=== PATIENT | female | born 1950 | race Caucasian/White ===

== ENCOUNTER → 2016-09-09 | Outpatient (CLI) | payer MEDICARE, MEDICAID | END | disposition home or self-care (01) | LOC: GMAB 15:32 | PROVIDERS: ATTEND Family Medicine | DX: I10 Essential (primary) hypertension (principal); F31.9 Bipolar disorder, unspecified ==

== ENCOUNTER 2016-10-07 19:02 | Emergency (ER) | payer MEDICARE, MEDICAID ==
--- NOTE | 2016-10-07 19:50 | CT ---
PROCEDURE: Head HISTORY: ankle turned, fell to right side, rt temporal zackery Indication: Same as above Comparison: 11/09/2015 Technique: CT of the head was done without intravenous contrast was done in the axial plane only FINDINGS: There is no intracranial hemorrhage, midline shift mass effect or acute focal infarct. There is a right frontal scalp swelling and hematoma measuring 5.8 x 2.0 cm If clinical concern exists regarding an acute ischemic/vascular pathology being responsible for patient's symptomatology, an MRI of the brain is more sensitive than the current study, in ruling out such a possibility. There is good scherer/white matter differentiation. The ventricular system is normal. The mastoid air cells are unremarkable . The paranasal sinuses show changes of minimal right maxillary sinusitis . There is no visualization of acute fractures involving the calvarium or the skull base. IMPRESSION: There is no acute intracranial abnormality. There is a right frontal scalp swelling and hematoma measuring 5.8 x 2.0 cm Electronically signed by: Minh Prieto MD 10/07/2016 7:50 PM BUTTERMAKER
--- NOTE | 2016-10-07 19:59 | RAD ---
Right ankle three views INDICATION: Twisted while walking status post fall IMPRESSION: There are dorsal osteophytes in the mid foot. There is a lucency at the base of the fifth metatarsal partially visualized correlate for tenderness in this area and consider foot films if needed to exclude hairline fracture. Mild osteoarthrosis of the ankle. Diffuse soft tissue swelling primarily lateral. Small linear ossification is noted along the lateral hindfoot on the AP film probably small avulsion age-indeterminate. Mortise and syndesmosis are congruent. Electronically signed by: Venkatesh Lassiter MD 10/07/2016 7:58 PM HAZMAT CDL DRIVER
[2016-10-07] MEDS ORDERED: MORPHINE SULFATE INJ 10 MG/ML VIAL IV ONE ×2 (20:42→22:02)
[2016-10-07] MEDS ORDERED: PROMETHAZINE HCL INJ 12.5 MG in SODIUM CHLORIDE 0.9% 50ML 50 ML IVPB ONE (20:42)
[2016-10-07] MEDS ORDERED: PROMETHAZINE HCL INJ 25 MG/ML VIAL ONE (20:48)
[2016-10-07] MEDS ORDERED: SODIUM CHLORIDE 0.9% 50ML 50 ML ONE (20:48)
--- NOTE | 2016-10-07 21:14 | RAD ---
EXAM DESCRIPTION: Foot, right 2 Views CLINICAL HISTORY: 66 years Female R foot/ankle pain s/p fall COMPARISON: None. TECHNIQUE: Two views of the right foot. FINDINGS: The bones are osteopenic. There is a lucency at the base of the fifth metatarsal bone consistent with acute fracture. There are degenerative changes in the foot which are most pronounced at the first tarsometatarsal. There are osteophytes projecting from the dorsal mid foot. IMPRESSION: [Fracture of the base of the fifth metatarsal bone. Electronically signed by: Ismael Velez MD 10/07/2016 9:14 PM ASSISTANT PROFESSOR OF MARINE BIOLOGY
--- NOTE | 2016-10-07 21:39 | ED.PDOC ---
History of Present Illness - General Chief Complaint: Trauma Stated Complaint: post fall, right head pain, right ankle pain Time Seen by Provider: 10/07/16 20:03 Source: patient, RN notes reviewed, Vital Signs reviewed, EMS Exam Limitations: no limitations - History of Present Illness Initial Comments: Patient is a 66 y/o female who is a resident of [facility]. Just prior to arrival, she was walking around when her right foot twisted and she fell and hit her head on the concrete floor. She did not pass out, however she did feel "out of it" until EMS arrived. No loss of urine or bowel. She has a significant hematoma on the right side of her forehead. She is on Xarelto and she is concerned about a bleed. She has a headache--severe, and severe right ankle pain. Nothing makes the head better. Immobilization makes the foot better. Movement makes both worse. Timing/Duration: 1 hour Severity: severe Improving Factors: immobilization Worsening Factors: movement Associated Symptoms: headaches, nausea/vomiting, weakness Allergies/Adverse Reactions: Allergies NO KNOWN ALLERGY Allergy (Verified 06/03/15 12:37) Home Medications: Ambulatory Orders Furosemide [Lasix] 40 mg PO DAILY 07/20/14 Potassium Chloride [Klor-Con] 20 meq PO DAILY 07/20/14 Rivaroxaban [Xarelto] 20 mg PO QPM 07/20/14 Tramadol HCl [Ultram] 50 ea PO Q4H PRN 07/20/14 Divalproex Sodium [Depakote Tab] 500 mg PO BID 11/09/15 Promethazine Tab [Phenergan Tablet] 25 mg PO PRN PRN 11/09/15 Acetaminophen W/ Codeine [Tylenol W/ CODEINE #3] 1 ea PO Q4H PRN #10 10/07/16 Acetaminophen [Tylenol] 500 mg PO PRN 10/07/16 Alum & Mag Hydrox-Simethicone [Mylanta] 30 ml PO PRN 10/07/16 Bisacodyl 10 mg FL PRN 10/07/16 Cetirizine HCl [Zyrtec] 10 mg PO DAILY 10/07/16 Fluticasone Prop 0.05% Nasal [Flonase Nasal Haskins] 1 - 2 spray DAILY 10/07/16 Hydrochlorothiazide 12.5 mg PO DAILY 10/07/16 LORazepam [Ativan] 0.5 mg PO PRN 10/07/16 LORazepam [Ativan] 0.5 mg TID 10/07/16 Lisinopril 20 mg PO DAILY 10/07/16 Loperamide HCl 2 mg PO PRN 10/07/16 Magnesium Hydroxide [Milk Of Magnesia] 30 ml PO PRN 10/07/16 Melatonin 3 mg BEDTIME 10/07/16 Metoprolol Tartrate 50 mg PO TID 10/07/16 Mirtazapine [Remeron] 15 mg PO BEDTIME 10/07/16 Olopatadine HCl [Pazeo] 0.7 % OP PRN 10/07/16 Polyethylene Glycol 3350 [Miralax] 17 gm PO PRN 10/07/16 Sennosides [Senna] 8.6 mg PRN 10/07/16 Spironolactone 25 mg PO DAILY 10/07/16 Trazodone HCl 50 mg PO BEDTIME 10/07/16 Review of Systems - Review of Systems Constitutional: States: weakness EENTM: States: no symptoms reported Respiratory: States: no symptoms reported Cardiology: States: no symptoms reported Gastrointestinal/Abdominal: States: nausea Genitourinary: States: no symptoms reported Musculoskeletal: States: joint pain, muscle pain Skin: States: other - bruising Neurological: States: headache Endocrine: States: no symptoms reported Hematologic/Lymphatic: States: easy bleeding All other Systems: Reviewed and Negative Past Medical History (General) - Patient Medical History Hx Seizures: Yes Hx Stroke: No Hx Dementia: No Hx Asthma: No Hx of COPD: No Hx Cardiac Disorders: No Hx Congestive Heart Failure: No Hx Pacemaker: Yes Hx Hypertension: Yes Hx Thyroid Disease: No Hx Diabetes: No Hx Gastroesophageal Reflux: No Hx Renal Disease: No Hx Cancer: No Hx of HIV: No Hx Hepatitis C: No Hx MRSA: Yes MRSA Source:: Blood Surgical History: noncontributory - Vaccination History Hx Influenza Vaccination: Yes Hx Pneumococcal Vaccination: Yes Immunizations Up to Date: Yes - Social History Hx Tobacco Use: No Hx Chewing Tobacco Use: No Hx Alcohol Use: No Hx Substance Use: No Hx Substance Use Treatment: No Hx Depression: No Hx Physical Abuse: No Hx Emotional Abuse: No Hx Suspected Abuse: No - Activities of Daily Living Custodial/Assisted Living (if applicable):: [place] - Female History Patient : No Family Medical History - Family History Mother Family History: No Known Living Status: Hx Family Asthma: No Hx Family Congestive Heart Failure: No Hx Family Hypertension: Yes Hx Family Stroke: Yes Hx Cardiac Disease: Yes Hx Family Diabetes: No Hx Family Cancer: No Physical Exam - Physical Exam General Appearance: Alert, Anxious, Obvious distress - Mild Eye Exam: bilateral normal Ears, Nose, Throat: hearing grossly normal, normal ENT inspection Neck: non-tender, full range of motion, supple, normal inspection Respiratory: lungs clear, normal breath sounds, no respiratory distress, no accessory muscle use Cardiovascular/Chest: regular rate, rhythm, no edema, no gallop, no murmur Gastrointestinal/Abdominal: normal bowel sounds, non tender, soft, no organomegaly Back Exam: normal inspection, no vertebral tenderness Extremity: no pedal edema, no calf tenderness, normal capillary refill, other - tender right foot--ventral and lateral Neurologic: validation specialist II-XII nml as tested, alert, normal mood/affect, oriented x 3 Skin Exam: rash - Large hematoma to right upper forehead Progress - Results/Orders Results/Orders: 10/07/16 19:14 Temperature 98.5 F Pulse Rate [ 92 H monitor] Respiratory 16 Rate Blood Pressure 137/85 [Right Arm] O2 Sat by Pulse 95 Oximetry - EKG/XRAY/CT XRAY: Right foot Xray Comments: Fracture at base of 5th [address]: Head - no intracranial abnormalities. Hematoma 4.8 x 2 cm right fro/par CT Ordered: Yes CT Interpretation Call Back: No - Report sent Departure - Departure Clinical Impression: Fall from standing Qualifiers: Encounter type: initial encounter Qualifier Code: (W19.XXXA) Unspecified fall, initial encounter Metatarsal fracture Qualifiers: Encounter type: initial encounter Metatarsal bone: fifth Fracture type: closed Fracture alignment: nondisplaced Laterality: right Qualifier Code: (S92.354A) Nondisplaced fracture of fifth metatarsal bone, right foot, initial encounter for closed fracture Traumatic hematoma of head Qualifiers: Encounter type: initial encounter Qualifier Code: (S00.93XA) Contusion of unspecified part of head, initial encounter Closed head injury Qualifiers: Encounter type: initial encounter Qualifier Code: (S09.90XA) Unspecified injury of head, initial encounter Time of Disposition: 23:40 Disposition: Discharge to SNF Condition: Good Departure Forms: ED Discharge - Pt. Copy, Patient Portal Self Enrollment Instructions: Foot Fracture, DI for Foot Fracture, DI for Closed Head Injury, Closed Head Injury Diet: resume usual diet Activity: walking as tolerated Referrals: Avinash Mandujano MD [Primary Care Provider] - 1 Week Prescriptions: Acetaminophen W/ Codeine [Tylenol W/ CODEINE #3] 1 ea PO Q4H PRN #10 PRN Reason: Pain Home Medications: Ambulatory Orders Furosemide [Lasix] 40 mg PO DAILY 07/20/14 Potassium Chloride [Klor-Con] 20 meq PO DAILY 07/20/14 Rivaroxaban [Xarelto] 20 mg PO QPM 07/20/14 Tramadol HCl [Ultram] 50 ea PO Q4H PRN 07/20/14 Divalproex Sodium [Depakote Tab] 500 mg PO BID 11/09/15 Promethazine Tab [Phenergan Tablet] 25 mg PO PRN PRN 11/09/15 Acetaminophen W/ Codeine [Tylenol W/ CODEINE #3] 1 ea PO Q4H PRN #10 10/07/16 Acetaminophen [Tylenol] 500 mg PO PRN 10/07/16 Alum & Mag Hydrox-Simethicone [Mylanta] 30 ml PO PRN 10/07/16 Bisacodyl 10 mg FL PRN 10/07/16 Cetirizine HCl [Zyrtec] 10 mg PO DAILY 10/07/16 Fluticasone Prop 0.05% Nasal [Flonase Nasal Haskins] 1 - 2 spray DAILY 10/07/16 Hydrochlorothiazide 12.5 mg PO DAILY 10/07/16 LORazepam [Ativan] 0.5 mg PO PRN 10/07/16 LORazepam [Ativan] 0.5 mg TID 10/07/16 Lisinopril 20 mg PO DAILY 10/07/16 Loperamide HCl 2 mg PO PRN 10/07/16 Magnesium Hydroxide [Milk Of Magnesia] 30 ml PO PRN 10/07/16 Melatonin 3 mg BEDTIME 10/07/16 Metoprolol Tartrate 50 mg PO TID 10/07/16 Mirtazapine [Remeron] 15 mg PO BEDTIME 10/07/16 Olopatadine HCl [Pazeo] 0.7 % OP PRN 10/07/16 Polyethylene Glycol 3350 [Miralax] 17 gm PO PRN 10/07/16 Sennosides [Senna] 8.6 mg PRN 10/07/16 Spironolactone 25 mg PO DAILY 10/07/16 Trazodone HCl 50 mg PO BEDTIME 10/07/16 Additional Instructions: Stop Tramadol while taking Tylenol #3. Follow up in ED for any worsening of symptoms.
[2016-10-07] MEDS ORDERED: ONDANSETRON INJ 4 MG/2 ML VIAL IV ONE (22:02)
[2016-10-07] MEDS ORDERED: ACETAMINOPHEN W/COD #3 TAB (ER Disp) PO PRN (23:04)
[2016-10-07] MEDS ORDERED: ACETAMINOPHEN W/COD #3 TAB 1 EA TAB PO ONE (23:04)
[2016-10-07 23:15] VITALS: O2SAT 97
[2016-10-08 00:22] VITALS: BP 124/66; TEMP 98.2
== END 2016-10-08 00:25 ==
LOC: ER 19:02
DX: S92.354A Nondisplaced fracture of fifth metatarsal bone, right foot, initial encounter for closed fracture (principal); S00.93XA Contusion of unspecified part of head, initial encounter; S09.90XA Unspecified injury of head, initial encounter; I10 Essential (primary) hypertension; Z95.0 Presence of cardiac pacemaker; Z86.14 Personal history of Methicillin resistant Staphylococcus aureus infection; Z79.899 Other long term (current) drug therapy; Z79.02 Long term (current) use of antithrombotics/antiplatelets; W18.30XA Fall on same level, unspecified, initial encounter; Y92.129 Unspecified place in nursing home as the place of occurrence of the external cause
CPT/HCPCS: 70450; 73610; 73620; A4216; J2270; J2405; J2550

== ENCOUNTER → 2016-10-11 | Outpatient (CLI) | payer MEDICARE, MEDICAID ==
--- NOTE | 2016-10-11 10:58 | RAD ---
EXAM DESCRIPTION: Foot,Right 3 Views CLINICAL HISTORY: PAIN IN RIGHT FOOT COMPARISON: October 07, 2016 IMPRESSION: 3 views of the right foot again demonstrate a nondisplaced mostly transverse fracture of the base of the fifth metatarsal relatively unchanged from previous exam without significant interval healing. Osseous structures are diffusely osteopenic. Severe osteoarthritic changes are seen at the base of the first metatarsal and medial cuneiform bone. Post surgical changes from bunionectomy are noted with mild osteoarthritic changes of the first metatarsophalangeal joint. 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
== END | disposition home or self-care (01) ==
LOC: RAD 09:19
PROVIDERS: ATTEND Orthopaedic Surgery
DX: M19.071 Primary osteoarthritis, right ankle and foot (principal)

== ENCOUNTER → 2016-10-16 | Outpatient (CLI) | payer MEDICARE, MEDICAID | END | disposition home or self-care (01) | LOC: GT 08:34 | PROVIDERS: ATTEND Internal Medicine | DX: E87.6 Hypokalemia (principal); F31.5 Bipolar disorder, current episode depressed, severe, with psychotic features; G40.89 Other seizures ==

== ENCOUNTER → 2016-10-24 | Outpatient (CLI) | payer MEDICARE, MEDICAID ==
--- NOTE | 2016-10-24 10:40 | RAD ---
EXAM DESCRIPTION: Foot,Right 3 Views CLINICAL HISTORY: 66 years Female, CLOSED FX OF METATARSAL BONE, RIGHT Comparison is made to October 11, 2016. IMPRESSION: Three views of the right foot demonstrate what is likely osteopenia. Considerable degenerative change within the first tarsometatarsal joint and MTP joint. There is a fracture through the base of the fifth metatarsal. The fracture line is less apparent on today's study. This is compatible with interval healing. No additional findings. Electronically signed by: Vadim Mason MD 10/24/2016 10:40 AM CDT
== END | disposition home or self-care (01) ==
LOC: RAD 09:46
PROVIDERS: ATTEND Orthopaedic Surgery
DX: S92.301D Fracture of unspecified metatarsal bone(s), right foot, subsequent encounter for fracture with routine healing (principal)

== ENCOUNTER → 2016-11-25 | Outpatient (CLI) | payer MEDICARE, MEDICAID ==
--- NOTE | 2016-11-25 15:02 | RAD ---
EXAM DESCRIPTION: Foot,Right 3 Views CLINICAL HISTORY: 66 years,Female,FX COMPARISON: None FINDINGS: The right foot demonstrates healing transverse fracture to the base of the fifth metatarsal with increasing blurring of the fracture lines is prior study. Prior osteotomies of the head of the first and fifth metatarsals. And severe degenerative changes at the base of the first metatarsal. Soft tissues are unremarkable. IMPRESSION: Healing fracture to the base of the right fifth metatarsal. Severe degenerative changes at the base of the first metatarsal [] Electronically signed by: Kyrie Yun MD 11/25/2016 3:01 PM CDT
== END | disposition home or self-care (01) ==
LOC: RAD 09:41
PROVIDERS: ATTEND Orthopaedic Surgery
DX: S92.301D Fracture of unspecified metatarsal bone(s), right foot, subsequent encounter for fracture with routine healing (principal); X58.XXXA Exposure to other specified factors, initial encounter

== ENCOUNTER → 2016-12-18 | Outpatient (CLI) | payer MEDICARE, MEDICAID | END | disposition home or self-care (01) | LOC: GT 07:55 | PROVIDERS: ATTEND Family Medicine | DX: N39.0 Urinary tract infection, site not specified (principal) ==

== ENCOUNTER 2017-01-01 05:47 | Day surgery (SDC) | payer MEDICARE, MEDICAID ==
[2017-01-01] MEDS ORDERED: LACTATED RINGERS 1,000 ML ONE (06:15)
--- NOTE | 2017-01-01 11:11 | OP ---
DATE OF PROCEDURE: 01/01/17 PREOPERATIVE DIAGNOSIS: 1. Hematochezia. POSTOPERATIVE DIAGNOSIS: 1. Internal hemorrhoids. 2. Diverticulosis. PROCEDURE: 1. Colonoscopy. SURGEON: Tod Rose MD. COMPLICATIONS: None apparent. BLOOD LOSS: None. MEDICATIONS: Monitored anesthesia care. DESCRIPTION OF PROCEDURE: Informed consent was obtained prior to sedation. The preprocedure cardiopulmonary assessment was satisfactory. The patient was placed in the left lateral decubitus position and was sedated. A digital rectal exam was unremarkable. The tip of the Olympus colonoscope was inserted in the rectum and guided over to the cecum. The cecum was identified by locating the ileocecal valve and appendiceal orifice. Prep was good. The mucosa of the cecum, ascending colon, hepatic flexure, transverse colon, splenic flexure, descending colon and sigmoid colon was closely examined. Direct and retroflexed views of the rectum were obtained. The patient has uninflamed sigmoid diverticulosis. The patient has some non-bleeding small internal hemorrhoids. Otherwise, the colonoscopy was unremarkable. RECOMMENDATIONS: 1. Resume outpatient Xarelto today. 2. Followup colonoscopy warranted in 5 years because of her personal history of polyps. 3. Daily fiber supplementation with Metamucil capsules to try to help minimize any hemorrhoidal bleeding. This should go along with a high fiber diet. #[id number] cc: Avinash Mandujano MD MTDRosa
[2017-01-01] MEDS ORDERED: PROPOFOL 200 MG/20 ML VIAL IV ONE (12:00)
[2017-01-01 13:06] VITALS: BP 112/75; TEMP 98.1; O2SAT 96
== END 2017-01-01 11:50 ==
LOC: AMB 05:47
PROVIDERS: ATTEND Internal Medicine Gastroenterology
DX: K92.1 Melena (principal); K57.30 Diverticulosis of large intestine without perforation or abscess without bleeding; K64.8 Other hemorrhoids; I10 Essential (primary) hypertension; I48.91 Unspecified atrial fibrillation; Z87.891 Personal history of nicotine dependence; Z79.01 Long term (current) use of anticoagulants; Z79.899 Other long term (current) drug therapy
CPT/HCPCS: 00810; 45378; J3490; J7120

== ENCOUNTER → 2017-01-21 | Outpatient (CLI) | payer MEDICARE, MEDICAID | LOC: GMAB 16:58 | PROVIDERS: ATTEND Family Medicine | DX: F31.9 Bipolar disorder, unspecified (principal) ==

== ENCOUNTER → 2017-01-30 | Outpatient (CLI) | payer MEDICARE, MEDICAID | END | disposition home or self-care (01) | LOC: GMAB 16:50 | PROVIDERS: ATTEND Family Medicine | DX: R10.13 Epigastric pain (principal) ==

== ENCOUNTER → 2017-02-05 | Outpatient (CLI) | payer MEDICARE, MEDICAID ==
--- NOTE | 2017-02-05 09:32 | US ---
EXAM DESCRIPTION: Gall Bladder CLINICAL HISTORY: 67 years, Female, EPIGASTRIC PAIN COMPARISON: None. FINDINGS: The pancreas unremarkable. Pancreatic tail not well seen. Visualized IVC unremarkable. Gallbladder partially obscured by bowel gas. No definite stones or wall thickening. No tenderness to scanning the gallbladder. Common bile duct 4 mm. Intrahepatic ducts not dilated. Liver 14.8 cm. Right kidney images not provided. IMPRESSION: Study within normal limits Electronically signed by: Josemanuel King MD 02/05/2017 9:32 AM CDT
== END | disposition home or self-care (01) ==
LOC: US 08:15
PROVIDERS: ATTEND Family Medicine
DX: R10.13 Epigastric pain (principal)

== ENCOUNTER → 2017-03-04 | Outpatient (CLI) | payer MEDICARE, MEDICAID | LOC: LAB.O 15:38 | PROVIDERS: ATTEND Surgery | DX: K61.0 Anal abscess (principal); N76.4 Abscess of vulva ==

== ENCOUNTER → 2017-04-23 | Outpatient (CLI) | payer MEDICARE, MEDICAID | END | disposition home or self-care (01) | LOC: GT 06:45 | PROVIDERS: ATTEND Family Medicine | DX: E87.6 Hypokalemia (principal) | CPT/HCPCS: 36415; 80053; 80164; P9603 ==

== ENCOUNTER → 2017-06-04 | Outpatient (CLI) | payer MEDICARE, MEDICAID | LOC: GT 05:35 | PROVIDERS: ATTEND Family Medicine | DX: F31.32 Bipolar disorder, current episode depressed, moderate (principal); Z79.01 Long term (current) use of anticoagulants | CPT/HCPCS: 36415; 80164; 85025; P9603 ==

== ENCOUNTER → 2017-06-17 | Outpatient (CLI) | payer MEDICARE, MEDICAID | END | disposition home or self-care (01) | LOC: GMAB 14:18 | PROVIDERS: ATTEND Family Medicine | DX: R79.9 Abnormal finding of blood chemistry, unspecified (principal); R94.6 Abnormal results of thyroid function studies; R06.02 Shortness of breath ==

== ENCOUNTER → 2017-09-02 | Outpatient (CLI) | payer MEDICARE, MEDICAID ==
--- NOTE | 2017-09-04 10:36 | MAM ---
EXAM DESCRIPTION: 3D Screening BILATERAL : Digital Mammography. CLINICAL HISTORY: 67 years Female SCREENING . No complaints. Remote family history of breast cancer. Postmenopausal. No HRT. COMPARISON: 2-D digital screening bilateral study 07/08/2016. Report from prior examination also reviewed. TECHNIQUE: Bilateral CC and MLO projection full-field images, 3-D tomosynthesis digital mammographic technique. Also bilateral synthesized CC/ MLO full-field images. CAD not utilized. FINDINGS: The breast parenchymal density pattern is: Heterogeneously dense breast tissue, which may obscure small masses. No skin thickening or nipple retraction bilateral solitary microcalcifications. No focal, stellate mass or density, focal asymmetry , and no suspicious microcalcifications bilaterally. Stable mammograms compared to prior study, taking into account differences in mammographic technique IMPRESSION: BI-RADS CATEGORY: 2 - BENIGN FINDINGS. FOLLOW UP: Routine digital bilateral screening, one year interval from August 2017. Written communication explaining the IMPRESSION and follow-up, will be mailed to the patient and referring health care provider. According to the [employer], yearly mammograms are recommended starting at age 40 and continuing as long as a woman is in good health. Any breast change noted on a breast self-exam should be reported promptly to the patient's healthcare provider. Breast MRI is recommended for women with an approximately 20-25% or greater lifetime risk of breast cancer, including women with a strong family history of breast or ovarian cancer and women who have been treated for Hodgkin's disease. A negative mammographic report should not delay tissue diagnosis in patients with significant clinical history or physical findings. Extremely dense breast tissue limits the sensitivity of digital mammography. Electronically signed by: Stanley Orr MD 09/04/2017 10:35 AM [facility]
== END ==
LOC: MAMMO 08:00
PROVIDERS: ATTEND Family Medicine
DX: Z12.31 Encounter for screening mammogram for malignant neoplasm of breast (principal)

== ENCOUNTER → 2017-10-22 | Outpatient (CLI) | payer MEDICARE, MEDICAID | LOC: GT 07:19 | PROVIDERS: ATTEND Family Medicine | DX: E87.6 Hypokalemia (principal); R41.81 Age-related cognitive decline; G40.89 Other seizures; F31.5 Bipolar disorder, current episode depressed, severe, with psychotic features; R41.82 Altered mental status, unspecified ==

== ENCOUNTER → 2017-11-19 | Outpatient (CLI) | payer MEDICARE, MEDICAID | LOC: GT 09:27 | PROVIDERS: ATTEND Family Medicine | DX: I48.91 Unspecified atrial fibrillation (principal); E03.9 Hypothyroidism, unspecified; Z79.01 Long term (current) use of anticoagulants ==

== ENCOUNTER → 2017-11-28 | Outpatient (CLI) | payer MEDICARE, MEDICAID | LOC: GT 07:26 | PROVIDERS: ATTEND Internal Medicine Nephrology | DX: E87.6 Hypokalemia (principal); E05.90 Thyrotoxicosis, unspecified without thyrotoxic crisis or storm; R63.0 Anorexia ==

== ENCOUNTER → 2017-11-29 | Outpatient (CLI) | payer MEDICARE, MEDICAID | LOC: GT 12:02 | PROVIDERS: ATTEND Internal Medicine Nephrology | DX: R82.99 Other abnormal findings in urine (principal) ==

== ENCOUNTER → 2017-12-03 | Outpatient (CLI) | payer MEDICARE, MEDICAID | LOC: GT 07:50 | PROVIDERS: ATTEND Psychiatry & Neurology Geriatric Psychiatry | DX: F31.32 Bipolar disorder, current episode depressed, moderate (principal) ==

== ENCOUNTER → 2017-12-31 | Outpatient (CLI) | payer MEDICARE, MEDICAID ==
--- NOTE | 2017-12-31 13:45 | RAD ---
EXAM DESCRIPTION: Knee,Left Complete CLINICAL HISTORY: 67 years Female, PAIN IN LEFT KNEE TECHNIQUE: 4 views of the left knee were performed. COMPARISON: None available. FINDINGS: The visualized bones appear well mineralized. No acute fracture or dislocation. Tricompartmental osteoarthritis is noted. There is small suprapatellar joint effusion. The soft tissues appear grossly unremarkable. IMPRESSION: Tricompartmental osteoarthritis with small suprapatellar joint effusion. Electronically signed by: Sylvia Da Silva MD 12/31/2017 1:44 PM CDT
--- NOTE | 2017-12-31 13:49 | RAD ---
EXAM DESCRIPTION: Pelvis CLINICAL HISTORY: 67 years Female, PAIN IN LEFT HIP COMPARISON: None. TECHNIQUE: AP radiograph of the pelvis was performed. FINDINGS: The pelvic ring appears grossly intact on this single AP radiograph. No acute fracture or dislocation. Bilateral sacroiliac joints appear normal. Intramedullary nail fixation of the right femur is noted. Mild degenerative changes are identified in both hips. The visualized lumbo-sacral spine demonstrates mild degenerative changes. IMPRESSION: Single AP radiograph of the pelvis demonstrates grossly intact pelvic ring. Mild bilateral hip osteoarthritis. Electronically signed by: Sylvia Da Silva MD 12/31/2017 1:48 PM CDT
== END ==
LOC: RAD 07:46
PROVIDERS: ATTEND Orthopaedic Surgery
DX: M25.562 Pain in left knee (principal); M25.552 Pain in left hip; M17.12 Unilateral primary osteoarthritis, left knee

== ENCOUNTER → 2018-10-15 | Outpatient (CLI) | payer MEDICARE, MEDICAID ==
--- NOTE | 2018-10-16 15:49 | MAM ---
EXAM DESCRIPTION: 3D Screening BILATERAL : Digital Mammography. CLINICAL HISTORY: 68 years Female SCREENING . No complaints or personal history of breast cancer. Remote family history of breast cancer. Childbirth. Postmenopausal. No HRT. Lifetime risk of developing breast cancer (Tyrer-Cuzick model)(%): . 6.7. COMPARISON: Bilateral screening digital breast tomosynthesis 09/02/2017.. TECHNIQUE: Bilateral CC and MLO projection full-field images, digital tomosynthesis mammographic technique. Bilateral digital 2-D full-field MLO images. CAD not available for tomosynthesis or 2-D images. Technically difficult study: "Frozen" left shoulder and VAD port in the left supraclavicular region. Technologist unable to visualize the left pectoral muscle on the MLO image. FINDINGS: The breast parenchymal density pattern is: Heterogeneously dense breast tissue, which may obscure small masses. No skin thickening or nipple retraction. 2 regions of focal asymmetry in the right breast are stable. Also bilateral solitary microcalcifications and vascular calcifications. Stable focal asymmetry middle third upper outer quadrant left breast. No new focal, stellate mass or density, focal asymmetry , and no suspicious microcalcifications bilaterally. Stable mammograms compared to prior study. IMPRESSION: Benign exam. BIRAD CATEGORY: 2 BENIGN FINDINGS. RECOMMENDATIONS: FOLLOW UP: Routine digital bilateral mammographic screening, one year interval from October 2018. Written communication explaining the IMPRESSION and follow-up, will be mailed to the patient and referring health care provider. According to the [employer], yearly mammograms are recommended starting at age 40 and continuing as long as a woman is in good health. Any breast change noted on a breast self-exam should be reported promptly to the patient's healthcare provider. Breast MRI is recommended for women with an approximately 20-25% or greater lifetime risk of breast cancer, including women with a strong family history of breast or ovarian cancer and women who have been treated for Hodgkin's disease. A negative mammographic report should not delay tissue diagnosis in patients with significant clinical history or physical findings. Extremely dense breast tissue limits the sensitivity of digital mammography. Electronically signed by: Stanley Orr MD 10/16/2018 3:46 PM CDT
== END ==
LOC: MAMMO 13:00
PROVIDERS: ATTEND Family Medicine
DX: Z12.31 Encounter for screening mammogram for malignant neoplasm of breast (principal)

== ENCOUNTER → 2019-08-26 | Outpatient (CLI) | payer MEDICARE, MEDICAID ==
--- NOTE | 2019-08-27 09:52 | CT ---
EXAM DESCRIPTION: Head CT without contrast CLINICAL HISTORY: Unspecified injury of the head COMPARISON: Previous CT and October 07, 2016 TECHNIQUE: Noncontrast head CT was performed with routine protocol. FINDINGS: Normal scherer-white matter differentiation. Ventricles and sulci are normal for age. No high density hemorrhage, focal edema or shift of the midline. No sulcal effacement. Normal orbital contents. Basilar cisterns appear clear. Intact calvarium with no fracture or lytic lesion. Normal aeration of tympanic cavities and mastoid air cells. No fluid levels in the paranasal sinuses. Skull base appears intact. Symmetrical internal auditory canals. IMPRESSION: No acute intracranial pathologic process. This exam was performed according to our departmental dose-optimization program, which includes automated exposure control, adjustment of the mA and/or kV according to patient size and/or use of iterative reconstruction technique. Total DLP equals 859.97 mGycm. Electronically signed by: Rad Cruz MD 08/27/2019 9:51 AM [facility]
--- NOTE | 2019-08-27 09:58 | CT ---
EXAM DESCRIPTION: Cervical Spine CLINICAL HISTORY: Unspecified injury of head COMPARISON: None Available. TECHNIQUE: Cervical CT is performed with thin-section axial imaging. MPRs are created and reviewed as well. FINDINGS: Axial bone window images reveal intact ring of C1. No abnormal widening of the atlantodens interval. No fracture of the vertebral bodies or transverse processes or posterior elements. Lung apices appear clear. No cervical mass or adenopathy. Sagittal reformatted images show normal alignment of vertebral bodies and facets. No jumped facet or facet fracture. Normal craniocervical alignment. No prevertebral soft tissue swelling. No a avulsion of the spinous processes. Spondylosis: Marked facet degenerative changes on the left at C2-3 through C4-5 levels. Mild posterior disc/osteophyte complexes without high-grade spinal stenosis. Sagittal images show degenerative changes around the dens. Degenerative loss of disc height at C6-7. Coronal reformatted images show normal atlantooccipital and atlantoaxial alignment. The base of the dens is intact as is the body of C2. Intact lateral masses. IMPRESSION: Negative for fracture or subluxation. This exam was performed according to our departmental dose-optimization program, which includes automated exposure control, adjustment of the mA and/or kV according to patient size and/or use of iterative reconstruction technique. Total DLP equals 398.73 mGycm. Electronically signed by: Rad Cruz MD 08/27/2019 9:56 AM MARKETING SUPPORT COORDINATOR
== END ==
LOC: CT 09:00
PROVIDERS: ATTEND Psychiatry & Neurology Neurology
DX: S09.90XS Unspecified injury of head, sequela (principal)

== ENCOUNTER → 2020-02-26 | Outpatient (CLI) | payer MEDICARE, MEDICAID | LOC: GT 10:47 | PROVIDERS: ATTEND Family Medicine | DX: R30.0 Dysuria (principal) ==

== ENCOUNTER 2020-06-12 11:48 | Emergency (ER) | payer MEDICARE, MEDICAID ==
[2020-06-12] MEDS ORDERED: ACETAMINOPHEN 325 MG TAB PO ONE (12:13)
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
[2020-06-12 12:45] VITALS: O2SAT 96
--- NOTE | 2020-06-12 12:54 | RAD ---
EXAM DESCRIPTION: Chest,1 View CLINICAL HISTORY: 70 years Female, covid COMPARISON: None. TECHNIQUE: AP portable chest. FINDINGS: Heart size is large with normal pulmonary vascularity. Cardiac pacer is in place. Prosthetic right shoulder. Patchy infiltrate in the left lung base. No pulmonary mass or worrisome nodule. No pneumothorax. Small left pleural effusion. Bones are unremarkable. IMPRESSION: Large heart without congestive failure. Small left pleural effusion. Electronically signed by: Rad Cruz MD 06/12/2020 12:52 PM [facility]
[2020-06-12 17:18] VITALS: BP 148/112; TEMP 98.9
== END 2020-06-12 17:10 ==
LOC: ER 11:48
DX: U07.1 COVID-19 (principal); R56.9 Unspecified convulsions; I48.91 Unspecified atrial fibrillation; I10 Essential (primary) hypertension; Z95.0 Presence of cardiac pacemaker; Z79.899 Other long term (current) drug therapy; Z79.01 Long term (current) use of anticoagulants

== ENCOUNTER → 2020-06-16 | Outpatient (CLI) | payer MEDICARE, MEDICAID | LOC: GT 09:39 | PROVIDERS: ATTEND Family Medicine | DX: U07.1 COVID-19 (principal) ==

== ENCOUNTER → 2020-06-19 | Outpatient (CLI) | payer MEDICARE, MEDICAID | LOC: GT 10:19 | PROVIDERS: ATTEND Family Medicine | DX: U07.1 COVID-19 (principal) ==

== ENCOUNTER → 2020-08-15 | Outpatient (CLI) | payer MEDICARE, MEDICAID | LOC: GT 14:47 | PROVIDERS: ATTEND Family Medicine | DX: E05.90 Thyrotoxicosis, unspecified without thyrotoxic crisis or storm (principal) ==

== ENCOUNTER → 2020-08-29 | Outpatient (CLI) | payer MEDICARE, MEDICAID | LOC: LAB.O 13:19 | PROVIDERS: ATTEND Internal Medicine Interventional Cardiology | DX: I48.0 Paroxysmal atrial fibrillation (principal); N28.0 Ischemia and infarction of kidney ==